=== PATIENT | male | born 1930 | race African-American/Black ===

== ENCOUNTER 2017-04-22 14:15 | Observation (INO) | payer MEDICARE, BC ==
[~2017-04-22] VITALS: Ht 170.2 cm; Wt 65.6 kg
--- NOTE | ~2017-04-22 | DS ---
PATIENT:MARCUS STARK :32 MEDICAL RECORD: [id number] DISCHARGE SUMMARY ADMISSION DATE: 04/22/17 DISCHARGE DATE: 04/23/17 HOSPITAL COURSE: An 87-year-old gentleman with a history of atrial flutter. He had a syncopal episode at home, was hypotensive with pressure of 77, rate of 150. He has not been drinking fluids regularly as well as had been out of his sotalol for about a week. He was given IV Lopressor, restarted on his medications, improved nicely, felt well, and discharged home in good condition. Resume sotalol [address] Crespo in approximately 3 to 4 weeks. ACTIVITIES: As tolerated. DIET: AHA diet. TRANSINT:[id number] Voice Confirmation ID: [id number] DOCUMENT ID: [id number] RADHA MCKEON MD CC: [id number] DICTATION DATE: 04/23/17820 ECOLOGICAL TECHNICAL OFFICER: 04/23/17 1241 DIS IN 04/23/17 [id number] [place] [address]
[~2017-04-22 14:15] MED LIST: BETAPACE 80 MG80 MG PO; GABAPENTIN100 MG PO; GLIMEPIRIDE2 MG PO; MOBIC7.5 MG PO; ORAZINC220 ( 50 ) PO; PLAVIX75 MG PO; PRINIVIL20 MG PO; TRADJENTA5 MG PO; TYLENOL W/CODEI1 TAB PO; VICTOZA0.6 MG/0.1 SQ; ZOCOR20 MG PO
--- NOTE | 2017-04-22 14:20 | NUR ---
REVCEIVED PT VIA ANA PER EMS FROM [facility] ACCEPTED TO SERVICES OF DR MCKEON RESP UNLABORED SKIN W/D DENIES ANY PAIN OR DISCOMFORT AT THIS TIME TELEMETRY APPLIE 97 A FLUTTER NAD NOTED AT THIS TIME
[2017-04-22] MEDS ORDERED: NEURONTIN600 MG PO (15:05)
[2017-04-22] MEDS ORDERED: ZESTRIL40 MG PO (15:10)
[2017-04-22] MEDS ORDERED: FLOMAX0.4 MG PO (15:10)
[2017-04-22 15:44] VITALS: BP 153/97; Ht 170.2 cm; Wt 65.6 kg
--- NOTE | 2017-04-22 19:30 | NUR ---
INITIAL ROUNDS COMPLETED. PT DENIES ANY DISCOMFORT. DAUGHTER AT BEDSIDE. WILL CONTINUE TO MONITOR.
[2017-04-22 20:35] VITALS: BP 115/72
--- NOTE | 2017-04-22 22:28 | NUR ---
PM MEDS GIVEN TO PT AND EXPLAINED TO BOTH PT AND DAUGHTER. PT STATED UNDERSTANDING. WILL CONTINUE TO MONITOR.
--- NOTE | 2017-04-22 23:59 | NUR ---
PT RESTING WITH EYES CLOSED. RESP EVEN AND REGULAR. SR UP X2, CALL LIGHT WITHIN REACH.
[2017-04-23 00:08] VITALS: BP 121/83
--- NOTE | 2017-04-23 02:03 | NUR ---
PT RESTING WITH EYES CLOSED. RESP EVEN AND REGULAR. SR UP X2, CALL LIGHT WITHIN REACH.
[2017-04-23 04:37] VITALS: BP 140/89
--- NOTE | 2017-04-23 04:45 | NUR ---
PT RESTING WITH EYES CLOSED. RESP EVEN AND REGULAR. SR UP X2, CALL LIGHT WITHIN REACH.
--- NOTE | 2017-04-23 06:34 | NUR ---
VSS THROUGHOUT NIGHT. A-FLUTTER PER CM. PT STATED TYLENOL WITH CODEINE ALLIVIATED FOOTPAIN. NEEDS MET; WILL CONTINUE TO MONITOR.
--- NOTE | 2017-04-23 07:20 | NUR ---
ASSESSMENT COMPLETED. TELEMERTY SHOWS AFLUTTER AT 80. ON ROOM AIR. LEFT AC SL. LEFT FOOT HAS 2 TOES AMPUTATED. DENIES ANY DIZZINESS OR ANY OTHER PROBLEM. FAMILY AT BEDSIDE. SR UP WITH CALL LIGHT IN REACH
[2017-04-23 08:00] VITALS: BP 133/92
--- NOTE | 2017-04-23 09:39 | NUR ---
RESTS IN BED WITH CALL LIGHT IN REACH. BABS NEEDS AT THIS TIME. WILL MONITOR.
--- NOTE | 2017-04-23 10:46 | NUR ---
PT DISCHARGED. IV DCD WITH TIP INTACT. INSTRUCTIONS GIVEN TO PT AND FAMILY. TO PRIVATE CAR PER WHEELCHAIR
== END 2017-04-23 10:51 | disposition home or self-care (01) ==
LOC: OBSVTIME 14:15 → D.M2 14:15
PROVIDERS: ADMIT Internal Medicine Interventional Cardiology
DX: I48.92 Unspecified atrial flutter (principal); I95.89 Other hypotension; T44.7X6A Underdosing of beta-adrenoreceptor antagonists, initial encounter; Z91.138 Patient's unintentional underdosing of medication regimen for other reason; I24.8 Other forms of acute ischemic heart disease